=== PATIENT | male | born 1990 | race Caucasian/White ===

== ENCOUNTER 2016-09-30 11:23 | Emergency (ER) | payer OTHER ==
[~2016-09-30] VITALS: Ht 167.6 cm; Wt 86.3 kg
[2016-09-30] MEDS ORDERED: AMOX875T PO (13:09)
[2016-09-30] MEDS ORDERED: ULTR50TA8 PO (13:09)
[2016-09-30 13:22] VITALS: BP 149/84
== END 2016-09-30 13:23 | disposition home or self-care (01) ==
LOC: M ED 11:23
DX: H66.91 Otitis media, unspecified, right ear (principal)

== ENCOUNTER → 2019-01-01 | Outpatient (REF) | payer OTHER ==
[~2019-01-01] MED LIST: AMOX875T PO; ULTR50TA8 PO
[2019-01-01 13:54] LABS: SEMEN APPEARANCE OPAQUE (OPAQUE); SEMEN VISCOSITY LIQUID (LIQUID); SEMEN pH 8.5 (7.0-8.0)
[2019-01-01 13:55] LABS: SPERM CONCENTRATION 45.7 M/ml (>=15.0); WBC CONCENTRATION >1 M/ml (<=1 M/ml)
== END ==
LOC: M LAB REF 12:33
PROVIDERS: ATTEND Family Medicine
DX: Z31.41 Encounter for fertility testing (principal)